=== PATIENT | female | born 1955 | race Caucasian/White ===

== ENCOUNTER → 2017-12-31 14:31 | Outpatient (CLI) | payer BC, SELFPAY ==
[2017-12-31 16:16] LABS: Absolute Lymphocyte Count 1.35 X10^3/ul (0.83-4.51); Absolute Neutrophil Count 3.2 X10^3/uL (2.0-7.7); Basophil# 0.03 X10^3/uL; Basophil% 0.6 % (0-1); Eosinophil# 0.13 X10^3/uL; Eosinophils% 2.6 % (0-5); Hematocrit 39.1 % (37-47); Hemoglobin 12.7 g/dl (12.0-15.0); Lymphocyte # 1.35 X10^3/ul (4.0); Lymphocyte % 26.6 % (19-41); Mean Corp Hgb Conc 32.5 g/gl (32-36); Mean Corpuscular Hgb 27.9 pg (27.0-32.0); Mean Corpuscular Volume 85.7 fL (81-99); Monocyte# 0.38 X10^3/uL; Monocyte% 7.5 % (0-10); Neutrophil # 3.17 X10^3/uL (2.7-7.7); Neutrophil % 62.5 % (47-70); Platelet Count 224 K/mm3 (150-450); RBC Distribution Width CV 13.6 % (11.6-14.6); RBC Distribution Width SD 41.9 fl (35.1-43.9); Red Blood Count 4.56 M/mm3 (4.2-5.4); White Blood Count 5.1 K/mm3 (4.4-11.0)
[2017-12-31 16:21] LABS: POSITIVE COUNT NO; POSITIVE DIFFERENTIAL NO; POSITIVE MORPHOLOGY NO
[2017-12-31 17:16] LABS: BUN 8 mg/dL (7-18); BUN/Creat Ratio 12.7 RATIO (10-20); Creatinine, Serum 0.63 mg/dL (0.55-1.02); EST Glomerular Filtration Rate 102 mL/min (>60); Est Glom Filt Rate - Afr Amer 123 mL/min (>60); Glucose 88 mg/dL (74-106); Protein, Total 7.5 g/dL (6.4-8.2)
[2017-12-31 17:17] LABS: ALB/GLOB Ratio 1.1 RATIO (0.9-2.4); AST(SGOT) 23 U/L (15-37); Alanine Aminotransfer ALT/SGPT 23 U/L (13-56); Alkaline Phosphatase 58 U/L (45-117); Anion Gap 11 (5-15); Calcium,Total 9.2 mg/dL (8.5-10.1); Chloride 105 mmol/L (98-107); Globulin 3.5 g/dL (2.2-4.2); Potassium 4.1 mmol/L (3.5-5.1); Sodium Level 143 mmol/L (136-145); Thyroid Stim Hormone (TSH) 1.55 uIU/mL (0.358-3.74)
[2018-01-01 09:19] LABS: Vitamin D,25 Hydroxy 23.9 ng/mL (29.95-100.01)
[2018-01-02 08:53] LABS: Hep C Antibodies 0.1 s/co ratio (0.0-0.9)
== END ==
PROVIDERS: Visit Provider Family Medicine Geriatric Medicine
DX: E55.9 Vitamin D deficiency, unspecified (principal); I10 Essential (primary) hypertension; Z13.89 Encounter for screening for other disorder
CPT/HCPCS: 36415; 80053; 82306; 84443; 85025; 86803

== ENCOUNTER → 2021-09-05 | Outpatient (CLI) | payer OTHER, SELFPAY | END | disposition home or self-care (01) | LOC: LABSPEC 17:02 | PROVIDERS: Visit Provider Family Medicine Geriatric Medicine | DX: N39.0 Urinary tract infection, site not specified (principal) | CPT/HCPCS: 87086; 87088 ==

== ENCOUNTER 2021-09-08 15:55 | Emergency (ER) | payer OTHER, SELFPAY ==
[2021-09-08 15:57] VITALS: BP 134/71; PULSE 91; RESP 17; TEMP 35.8; O2SAT 99; BMI 25.7
--- NOTE | 2021-09-08 16:24 | CT_ITS ---
STUDY: CT ABDOMEN AND PELVIS WITHOUT CONTRAST REASON FOR EXAM: Female, 66 years old. Kidney Stone L flank pain RADIATION DOSAGE (If Supplied By Facility): CTDIvol = ( 6.67 ) mGy, DLP = ( 338.02 ) mGycm TECHNIQUE: Transaxial images were obtained from the dome of the diaphragm to the symphysis pubis without oral contrast, and without intravenous contrast. Sagittal and coronal images were reconstructed. Individualized dose optimization techniques were used for this CT. COMPARISON: None. FINDINGS: 1.5 cm bilobed nodule in the right lower lobe the lungs and correlation with CT the chest with contrast is recommended. The visualized portions of the heart are within normal limits. Normal liver. Normal gallbladder and extrahepatic biliary system. Normal spleen. Normal pancreas. Normal bilateral adrenal glands. Normal right kidney. 6 mm obstructing stone of the left ureterovesical junction with moderate ureteral dilatation, hydronephrosis, and perinephric edema. Normal visualized stomach. Normal small intestine. Normal colon. The appendix is visualized and appears normal. Normal abdominal aorta. Normal inferior vena cava. Normal retroperitoneum. Normal urinary bladder. Normal abdominal wall. Normal osseous structures. CT/Abdomen/Pelvis without Cont IMPRESSION: 6 mm obstructing stone at the left ureterovesical junction with moderate ureteral dilatation, hydronephrosis, perinephric edema. Electronically Signed: Sergio Espana MD at 17:17 EDT ,
--- NOTE | 2021-09-08 16:25 | EDS_ITS ---
HPI HPI - GI History of Present Illness Chief Complaint: Flank Pain Informant: patient Abdominal Pain/Flank Pain Onset: Hours (4) Context: Sudden Onset Timing: Continuous and Waxes and wanes Quality: Aching Location: Left Flank (in back coming around to the left side not the groin or anywhere else) Current Severity: Severe Maximum Severity: Severe Worsened by: Nothing Relieved by: Nothing Nausea/Vomiting/Emesis GI Symptom: Positive for Nausea and Vomiting Onset: Today Diarrhea/Melena/Hematochezia GI Symptom: Negative for Diarrhea, Melena and Hematochezia Associated Symptoms Associated Symptoms: Negative for Dysuria, Frequency and Hematuria Narrative Narrative: Patient states she feels like she is having another kidney stone. She has had several in the past and passed them all, she has never had surgery for stone. This is on the left side. Nausea and vomiting associated with this after the pain started. No problems urinating, was feeling fine prior to the onset of pain 4 or so hours ago all of a sudden. PFSH [facility] Medical History (Updated 09/08/21 @ 17:[address] Jono Rodriguez MD) Kidney stones Home Medications ondansetron 8 mg PO Q8H PRN PRN #20 tab 09/08/21 [Rx Last Taken Unknown] oxycodone-acetaminophen 1 tab PO Q4H PRN 3 Days #18 tablet 09/08/21 [Rx Last Taken Unknown] tamsulosin [Flomax] 0.4 mg PO DAILY #7 cap 09/08/21 [Rx Last Taken Unknown] Allergy/AdvReac Type Severity Reaction Status Date / Time propoxyphene [From Darvon] Allergy Other Verified 09/08/21 16:01 Sulfa (Sulfonamide Allergy Other Verified 09/08/21 16:01 Antibiotics) Tetanus Vaccines and Toxoid Allergy Rash Verified 09/08/21 16:01 ciprofloxacin [From Cipro] AdvReac Other Verified 09/08/21 16:01 Surgical History (Updated 09/08/21 @ 16:[address] Jono Rodriguez MD) H/O: hysterectomy Social History Smoking Status: Never smoker ROS ROS ED Constitutional Constitutional ED: Denies chills or fever(s) Eyes Eyes: Denies change in vision or diplopia ENT ENT ED: Denies rhinorrhea or sore throat Cardiovascular Cardiovascular: Denies chest pain or palpitations Respiratory/Chest Respiratory/Chest: Denies cough or dyspnea Gastrointestinal Gastrointestinal: Reports as per HPI, abdominal pain, nausea and vomiting; Denies diarrhea Genitourinary Genitourinary ED: Reports flank pain; Denies dysuria or hematuria Musculoskeletal Musculoskeletal: Reports back pain; Denies neck pain Integumentary Denies abscess or rash Neurologic Neurologic: Denies headache(s), paresthesias or weakness Psychiatric Psychiatric: Denies anxiety or suicidal thoughts EXAM Physical Exam Const Vital Signs: 09/08/21 15:57 09/08/21 16:04 09/08/21 17:25 Temperature 96.4 F L 97.7 F L Temperature Source Temporal Temporal Pulse Rate 91 72 Respiratory Rate 17 16 Respiratory Pattern Normal Blood Pressure 134/71 H 132/63 H Blood Pressure Mean 92 86 Pulse Ox 99 96 Oxygen Delivery Method Room Air Room Air Positive well nourished and well developed Constitutional Narrative: In acute painful distress, intermittently moaning and screaming, in between normal conversation General Appearance ED: well developed HEENT Reports moist mucous membranes normocephalic and atraumatic Eyes PERRL and EOMs intact bilaterally Neck full ROM and supple Resp normal respiratory effort and clear to auscultation bilaterally Cardio regular rate, regular rhythm and no murmurs GI non-tender and non-distended Auscultation: normoactive bowel sounds Palpation: soft Back/Spine General Back: CVA tenderness left (Overlying erythema here I have been rubbing it and putting Biofreeze on it, just trying to help the pain; no other rash/lesions) and other FROM Extremity normal to inspection General Extremety ED: Negative for edema, pulses abnormal or tenderness General Extremity: Negative for edema or pulses abnormal Neuro oriented x3, CN's II-XII intact bilaterally and no sensory deficits noted Sensorium / Orientation: awake and alert Motor Exam: strength 5/5 throughout Psych Mood & Affect: anxious Skin no rashes or lesions noted and no wounds MDM MDM MDM Narrative Medical decision making narrative: Urine shows positive nitrite but no pyuria, 1+ bacteria seen. This will be sent for culture, unlikely true infection so I do not think she needs any antibiotics right now. She does have a completely obstructed ureter with hydroureter and hydronephrosis due to a 6 mm UVJ stone. It is possible this will pass on its own. She is feeling much better after Toradol, morphine, Zofran. She is in agreement with prescriptions for expectant management, we discussed reasons to return and follow-up with urology. Lab Data Attestation: I reviewed the patient's lab results. Labs: Laboratory Results - last 24 hr 09/08/21 16:10 Urine Color Yellow Urine Clarity Clear Urine pH 7.0 Ur Specific [place] 1.010 Urine Protein 15 H Urine Glucose (UA) Normal Urine Ketones 50 H Urine Occult Blood 10 H Urine Nitrite Positive H Urine Bilirubin Negative Urine Urobilinogen Normal Ur Leukocyte Esterase Negative Urine RBC 0 SEEN Urine WBC 0 SEEN Ur Squamous Epith Cells 0 SEEN Urine Bacteria 1+ Urine Mucus 0 SEEN Radiography Diagnostic Testing: Clinical Impression(s) from Imaging Studies Abdomen/Pelvis CT 09/08/21 16:24 IMPRESSION: 6 mm obstructing stone at the left ureterovesical junction with moderate ureteral dilatation, hydronephrosis, perinephric edema. Electronically Signed: Sergio Espana MD at 17:17 EDT , Discharge Plan Triage Chief Complaint: Flank Pain ED Provider: Jono Rodriguez Dx/Rx/DC Orders Clinical Impression: Ureterolithiasis, Renal colic on left side Instructions: ED Kidney Stone w/ Colic Prescriptions: New oxycodone-acetaminophen [oxycodone-acetaminophen] 1 TABLET tablet 1 tab PO Q4H PRN (Reason: Pain) 3 Days Qty: 18 RF: 0 ondansetron [ondansetron] 4 MG tablet 8 mg PO Q8H PRN PRN (Reason: Nausea) Qty: 20 RF: 0 tamsulosin [Flomax] 0.4 mg capsule 0.4 mg PO DAILY Qty: 7 RF: 0 Primary Care Provider: Brandyn Dodson Chi Referrals: Dionne Mccracken MD [STAFF PHYSICIAN] - 1 Week if not improving (Or ER if medications are not keeping your symptoms controlled enough) Brandyn Dodosn Chi, MD [Primary Care Provider] - Disposition Disposition: Home, Self Care
[2021-09-08] MEDS: Morphine 4 MG/ML Syringe IV (16:32)
[2021-09-08] MEDS: Ketorolac 15 MG/ML Vial IV (16:32)
[2021-09-08] MEDS: Ondansetron 4 MG/2 ML Vial IV (16:32)
[2021-09-08 16:52] LABS: Color, Urine Yellow (Yellow); Glucose, Dipstick Normal (Normal); Ketone-Dipstick 50 mg/dl (Negative); Leukocyte Esterase-Dipstick Negative /ul (Negative); Mucous, Urine 0 SEEN /hpf (<or=2+); Nitrite-Dipstick Positive (Negative); Occult Blood-Urine 10 /ul (Negative); Protein-Dipstick 15 mg/dl (Negative); Red Blood Cells-Urine 0 SEEN /hpf (0-5); Squamous Epithelial Cells - UA 0 SEEN /hpf (5-10); Urine Bilirubin Dipstick Negative (Negative); Urine Clarity Clear (Clear); Urine Urobilinogen Normal (Normal); White Blood Cells 0 SEEN /hpf (0-5)
[2021-09-08 17:25] VITALS: BP 132/63; PULSE 72; RESP 16; TEMP 36.5; O2SAT 96
[2021-09-08 17:25] LABS: Bacteria 1+ /hpf (None Seen)
== END 2021-09-08 18:50 | disposition home or self-care (01) ==
PROVIDERS: Emergency Provider Emergency Medicine; PCP Family Medicine Geriatric Medicine; Visit Provider Emergency Medicine
DX: N13.2 Hydronephrosis with renal and ureteral calculous obstruction (principal); Z87.442 Personal history of urinary calculi
CPT/HCPCS: 74176; 81001; 87086; 96374; 96375; 99283; J2405

== ENCOUNTER 2021-09-11 04:12 | Observation (INO) | payer OTHER, SELFPAY ==
[2021-09-11] VITALS (13 sets, daily range): BP systolic 98–154; BP diastolic 40–95; PULSE 72–107; RESP 16–18; TEMP 36.2–37; O2SAT 95–100; BMI 26.6; BMI 26.0
[2021-09-11] MEDS: Ondansetron 4 MG/2 ML Vial IV (04:23)
[2021-09-11] MEDS: 0.9% Normal Saline 1,000 ML 999 ML IV (04:23)
[2021-09-11] MEDS: Morphine 4 MG/ML Syringe IV ×2 (04:23→09:15)
[2021-09-11] MEDS: Ketorolac 15 MG/ML Vial IV (04:25)
[2021-09-11 04:31] LABS: Absolute Lymphocyte Count 0.48 X10^3/uL (0.83-4.51); Absolute Neutrophil Count 11.2 X10^3/uL (2.0-7.7); Basophil# 0.02 X10^3/uL; Basophil% 0.2 % (0-1); Hematocrit 39.7 % (37-47); Hemoglobin 12.9 g/dL (12.0-15.0); Lymphocyte # 0.48 X10^3/ul (0.83-4.51); Lymphocyte % 3.9 % (19-41); Mean Corp Hgb Conc 32.5 g/dL (32-36); Mean Corpuscular Hgb 27.9 pg (27.0-32.0); Mean Corpuscular Volume 85.9 fL (81-99); Mean Platelet Vol. 10.9 fl (6.2-12.0); Monocyte# 0.52 X10^3/uL; Monocyte% 4.2 % (0-10); NRBC Flagged by Analyzer 0 % (0-5); Neutrophil # 11.24 X10^3/uL (2.7-7.7); Neutrophil % 91.1 % (47-70); POSITIVE DIFFERENTIAL YES; Platelet Count 215 K/mm3 (150-450); RBC Distribution Width CV 12.8 % (11.6-14.6); Red Blood Count 4.62 M/mm3 (4.2-5.4); White Blood Count 12.3 K/mm3 (4.4-11.0)
[2021-09-11 04:36] LABS: Differential Indicated SCAN CRITERIA MET
--- NOTE | 2021-09-11 04:39 | EX.ED.DYSGE1 ---
HPI History of Present Illness Chief Complaint: Flank Pain Narrative Narrative: Patient is a 66-year-old female who was seen 3 days ago for the same complaint. At that time she had a CT scan obtained which showed a 6 mm stone in the left distal ureter with obstruction. She was feeling better after Toradol morphine and Zofran in the ER and was discharged home with Percocet. She states she was doing well but over the past 6 hours has had return of pain at the Percocet is not helping with. Secondary to this she presents to the hospital for evaluation [facility] Medical History Kidney stones Home Medications ondansetron 8 mg PO Q8H PRN PRN #20 tab 09/08/21 [Rx Last Taken Unknown] oxycodone-acetaminophen 1 tab PO Q4H PRN 3 Days #18 tablet 09/08/21 [Rx Last Taken Unknown] tamsulosin [Flomax] 0.4 mg PO DAILY #7 cap 09/08/21 [Rx Last Taken Unknown] ketorolac 10 mg PO 4X/DAY PRN PRN 5 Days #20 tab 09/11/21 [Rx Last Taken Unknown] Allergy/AdvReac Type Severity Reaction Status Date / Time propoxyphene [From Darvon] Allergy Other Verified 09/11/21 04:19 Sulfa (Sulfonamide Allergy Other Verified 09/11/21 04:19 Antibiotics) Tetanus Vaccines and Toxoid Allergy Rash Verified 09/11/21 04:19 ciprofloxacin [From Cipro] AdvReac Other Verified 09/11/21 04:19 Surgical History (Updated 09/08/21 @ 16:[address] Jono Rodriguez MD) H/O: hysterectomy Social History Smoking Status: Never smoker ROS ROS ED Constitutional Constitutional ED: Denies chills or fever(s) ENT ENT ED: Denies sore throat Cardiovascular Cardiovascular: Denies chest pain Respiratory/Chest Respiratory/Chest: Denies cough or dyspnea Gastrointestinal Gastrointestinal: Reports abdominal pain and nausea; Denies diarrhea or vomiting Genitourinary Genitourinary ED: Denies dysuria Musculoskeletal Musculoskeletal: Reports back pain; Denies myalgias Integumentary Denies rash Neurologic Neurologic: Denies headache(s) Hematologic/Lymphatic Hematologic/Lymphatic: Denies easy bleeding or easy bruising EXAM Physical Exam Const Vital Signs: 09/11/21 04:13 09/11/21 06:30 Temperature 98.2 F Temperature Source Temporal Pulse Rate 101 H Respiratory Rate 17 16 Blood Pressure 154/95 H Blood Pressure Mean 114 Pulse Ox 98 Oxygen Delivery Method Room Air Positive well nourished and well developed General Appearance ED: well developed Eyes PERRL and EOMs intact bilaterally Neck supple Resp normal respiratory effort and clear to auscultation bilaterally Cardio regular rate and regular rhythm Rate: other Other Details: Radial pulses are +2-4 bilaterally are equal and symmetric GI non-distended GI Narrative: Mild pain on palpation of the left-sided abdomen without voluntary guarding or rigidity Auscultation: normoactive bowel sounds Palpation: soft Back/Spine Back/Spine Narrative: Positive left CVA pain Extremity normal to inspection Neuro oriented x3 and CN's II-XII intact bilaterally Sensorium / Orientation: alert Motor Exam: strength 5/5 throughout Psych mental status grossly normal Skin no rashes or lesions noted MDM MDM MDM Narrative Medical decision making narrative: Patient presented to the ER afebrile she was hypertensive but I felt this was related to pain. She has a known 6 mm stone so I felt there was no need for repeat imaging but did elect to check basic labs to rule out urosepsis and acute kidney injury. Blood work showed no elevation to her creatinine and even though her white count was elevated the urine showed no infection. I feel the leukocytosis is most likely stress response from her pain. Patient was given morphine Toradol and Zofran and had resolution of her symptoms. The patient did drive herself to the ER and therefore will need to be watched for 4 hours until she is safe for discharge. At that time if her pain remains controlled I feel she is safe for discharge and can have Toradol added to her Percocet regimen. However if pain returns with significant she may need admitted for intractable pain Lab Data Attestation: I reviewed the patient's lab results. Labs: Laboratory Results - last 24 hr 09/11/21 09/11/21 09/11/21 04:20 04:20 05:30 WBC 12.3 H RBC 4.62 Hgb 12.9 Hct 39.7 MCV 85.9 MCH 27.9 MCHC 32.5 RDW Std Deviation 40.0 RDW Coeff of Terry 12.8 Plt Count 215 MPV 10.9 Immature Gran % (Auto) 0.600 Neut % (Auto) 91.1 H Lymph % (Auto) 3.9 L [place] % (Auto) 4.2 Eos % (Auto) 0.0 Baso % (Auto) 0.2 Absolute Neuts (auto) 11.2 H Absolute Lymphs (auto) 0.48 L Nucleated RBC % 0 Sodium 137 Potassium 4.1 Chloride 102 Carbon Dioxide 30.0 Anion Gap 5 BUN 12 Creatinine 0.82 Estim Creat Clear Calc 57.33 Est GFR (MDRD) Af Amer 91 Est GFR (MDRD) Non-Af 75 BUN/Creatinine Ratio 14.7 Glucose 141 H Calcium 8.9 Urine Color Yellow Urine Clarity Clear Urine pH 7.0 Ur Specific [place] 1.015 Urine Protein Negative Urine Glucose (UA) Normal Urine Ketones Negative Urine Occult Blood 25 H Urine Nitrite Negative Urine Bilirubin Negative Urine Urobilinogen Normal Ur Leukocyte Esterase Negative Urine RBC 0-5 SEEN Urine WBC 0 SEEN Ur Squamous Epith Cells 0 SEEN Urine Bacteria 0 SEEN Urine Mucus 0 SEEN Discharge Plan Triage Chief Complaint: Flank Pain ED Provider: Angelo Matos Dx/Rx/DC Orders Clinical Impression: Renal colic on left side, Ureterolithiasis Instructions: ED Kidney Stone w/ Colic Prescriptions: New ketorolac 10 mg tablet 10 mg PO 4X/DAY PRN PRN (Reason: pain) 5 Days Qty: 20 RF: 0 No Action oxycodone-acetaminophen [oxycodone-acetaminophen] 1 TABLET tablet 1 tab PO Q4H PRN (Reason: Pain) 3 Days Qty: 18 RF: 0 ondansetron [ondansetron] 4 MG tablet 8 mg PO Q8H PRN PRN (Reason: Nausea) Qty: 20 RF: 0 tamsulosin [Flomax] 0.4 mg capsule 0.4 mg PO DAILY Qty: 7 RF: 0 Primary Care Provider: Brandyn Dodson Chi Referrals: Brandyn Dodson Chi, MD [Primary Care Provider] - Activity Restrictions/Additional Instructions: Please continue Percocet as needed for pain control and you may take 2 to time if necessary. Please begin taking the Flomax as this will help you pass the larger stone that you have and you can add Toradol to the pain regimen and take at the same time as the Percocet for improved pain control. If you develop a fever over 100.4 or your pain is not controlled with outpatient therapy please return to the hospital for repeat evaluation
[2021-09-11 04:49] LABS: Anion Gap 5 (5-15); BUN 12 mg/dL (7-18); BUN/Creat Ratio 14.7 RATIO (10-20); Calcium,Total 8.9 mg/dL (8.5-10.1); Chloride 102 mmol/L (98-107); Creatinine, Serum 0.82 mg/dL (0.55-1.02); EST Glomerular Filtration Rate 75 mL/min (>60); Est Glom Filt Rate - Afr Amer 91 mL/min (>60); Estimated Creatinine Clearance 57.33 ml/min; Glucose 141 mg/dL (74-106); Potassium 4.1 mmol/L (3.5-5.1); Sodium Level 137 mmol/L (136-145)
[2021-09-11 05:34] LABS: Bacteria 0 SEEN /hpf (None Seen); Mucous, Urine 0 SEEN /hpf (<or=2+); Squamous Epithelial Cells - UA 0 SEEN /hpf (5-10); White Blood Cells 0 SEEN /hpf (0-5)
[2021-09-11 05:35] LABS: Color, Urine Yellow (Yellow); Glucose, Dipstick Normal (Normal); Ketone-Dipstick Negative (Negative); Leukocyte Esterase-Dipstick Negative /ul (Negative); Nitrite-Dipstick Negative (Negative); Occult Blood-Urine 25 /ul (Negative); Protein-Dipstick Negative (Negative); Specific Gravity, Urine 1.015 (1.002-1.030); Urine Bilirubin Dipstick Negative (Negative); Urine Clarity Clear (Clear); Urine Urobilinogen Normal (Normal)
[2021-09-11 06:02] LABS: Red Blood Cells-Urine 0-5 SEEN /hpf (0-5)
--- NOTE | 2021-09-11 09:02 | NURSING ---
MED SURG OBS KEERTHI LEFT RENAL COLIC, 6 MM UVJ STONE
--- NOTE | 2021-09-11 10:53 | EKG12_ITS ---
Test Reason : PRE-OP Blood Pressure : / mmHG Vent. Rate : 078 BPM Atrial Rate : 078 BPM P-R Int : 140 ms QRS Dur : 084 ms QT Int : 402 ms P-R-T Axes : 059 038 047 degrees QTc Int : 458 ms Normal sinus rhythm Normal ECG No previous ECGs available Confirmed by SARA MARTINEZ, GREGORY ([id number]), mapping editor SASHA VILLAREAL ([id number]) on 09/13/2021 9:46:51 AM Referred By: KEERTHI Confirmed By:BHUMI RUIZ MD
--- NOTE | 2021-09-11 10:53 | HP.PCM_ITS ---
HPI - General General Date of Admission: 09/11/21 HPI Narrative ROMELIA KUMAR, is a 66 F who presents with a large stone in the distal LEFT ureter. plan for stent placement today admitted from ER with pain. PENDING SALE TO [facility] Medical History Kidney stones Home Medications ondansetron 8 mg PO Q8H PRN PRN #20 tab 09/08/21 [Rx Last Taken Unknown] oxycodone-acetaminophen 1 tab PO Q4H PRN 3 Days #18 tablet 09/08/21 [Rx Last Taken 09/11/21 01:00] tamsulosin [Flomax] 0.4 mg PO DAILY #7 cap 09/08/21 [Rx Last Taken 09/11/21 03:00] cephalexin 500 mg PO BID #10 cap 09/11/21 [Rx Last Taken Unknown] ketorolac 10 mg PO 4X/DAY PRN PRN 5 Days #20 tab 09/11/21 [Rx Last Taken Unknown] oxycodone-acetaminophen 1 tab PO Q4H PRN 7 Days #14 tab 09/11/21 [Rx Last Taken Unknown] Allergy/AdvReac Type Severity Reaction Status Date / Time propoxyphene [From Darvon] Allergy Other Verified 09/11/21 04:19 Sulfa (Sulfonamide Allergy Other Verified 09/11/21 04:19 Antibiotics) Tetanus Vaccines and Toxoid Allergy Rash Verified 09/11/21 04:19 ciprofloxacin [From Cipro] AdvReac Other Verified 09/11/21 04:19 Surgical History (Updated 09/08/21 @ 16:[address] Jono Rodriguez MD) H/O: hysterectomy Social History Smoking Status: Never smoker Vital Signs Vital Signs Vital Signs: 09/11/21 04:13 09/11/21 06:30 09/11/21 09:09 Temperature 98.2 F 98 F Temperature Source Temporal Temporal Pulse Rate 101 H 78 Respiratory Rate 17 16 18 Blood Pressure 154/95 H 121/68 H Blood Pressure Mean 114 85 Blood Pressure Source Blood Pressure Position Blood Pressure Location Pulse Ox 98 99 Oxygen Delivery Method Room Air Room Air 09/11/21 09:50 Temperature 98.2 F Temperature Source Oral Pulse Rate 72 Respiratory Rate 18 Blood Pressure 127/53 H Blood Pressure Mean 77 Blood Pressure Source Monitor Blood Pressure Position Semi-Fowlers Blood Pressure Location Left Arm Pulse Ox 100 Oxygen Delivery Method Room Air Weight Weight: 66.678 kg Body Mass Index (BMI) 26.0 Physical Exam Const alert and oriented x3 General Appearance: cooperative HEENT normocephalic, head/scalp atraumatic, EAC's normal and TM's normal bilaterally Eyes PERRL and EOMs intact bilaterally Pupil: sluggish Neck no lymphadenopathy, supple and no JVD General: trachea midline Lymph Lymphatic: no lymphadenopathy noted, lymphedema and lymphadenopathy Resp normal respiratory effort, normal air movement and clear to auscultation bilaterally Cardio regular rate, regular rhythm and peripheral pulses 2+ throughout GI soft to palpation, non-tender and non-distended Extremity normal capillary refill and no clubbing, cyanosis or edema General Extremity: no tenderness to palpation of joints or extremities Skin no rashes or lesions noted General Skin Exam: turgor normal Lesions: no lesions Rashes: no rashes Neuro CN's II-XII intact bilaterally Speech: speech normal Motor Exam: strength 5/5 throughout; Negative for general weakness Psych thought process normal, cooperative and affect normal Appearance: appropriate Results Lab / Micro Data Result Diagrams: 09/11/21 04:20 09/11/21 04:20 Labs: Laboratory Results - last 24 hr 09/11/21 04:20: WBC 12.3 H, RBC 4.62, Hgb 12.9, Hct 39.7, MCV 85.9, MCH 27.9, MCHC 32.5, RDW Std Deviation 40.0, RDW Coeff of Terry 12.8, Plt Count 215, MPV 10.9, Immature Gran % (Auto) 0.600, Neut % (Auto) 91.1 H, Lymph % (Auto) 3.9 L, [place] % (Auto) 4.2, Eos % (Auto) 0.0, Baso % (Auto) 0.2, Absolute Neuts (auto) 11.2 H, Absolute Lymphs (auto) 0.48 L, Nucleated RBC % 0 09/11/21 04:20: Sodium 137, Potassium 4.1, Chloride 102, Carbon Dioxide 30.0, Anion Gap 5, BUN 12, Creatinine 0.82, Estim Creat Clear Calc 57.33, Est GFR (MDRD) Af Amer 91, Est GFR (MDRD) Non-Af 75, BUN/Creatinine Ratio 14.7, Glucose 141 H, Calcium 8.9 09/11/21 05:30: Urine Color Yellow, Urine Clarity Clear, Urine pH 7.0, Ur Specific [place] 1.015, Urine Protein Negative, Urine Glucose (UA) Normal, Urine Ketones Negative, Urine Occult Blood 25 H, Urine Nitrite Negative, Urine Bilirubin Negative, Urine Urobilinogen Normal, Ur Leukocyte Esterase Negative, Urine RBC 0-5 SEEN, Urine WBC 0 SEEN, Ur Squamous Epith Cells 0 SEEN, Urine Bacteria 0 SEEN, Urine Mucus 0 SEEN Assessment & Plan Assessment/Plan (1) Renal colic on left side: PLAN: plan for cysto and left stent placement.
--- NOTE | 2021-09-11 11:00 | PCM.DC ---
Discharge Instructions Diet Discharge Diet: No restrictions Activity Discharge Activity: Return to Normal Activity and May Not Drive (while taking narcotic pain medications.) Dressing / Incision Call your doctor if you observe: Fever of 101 or Higher Follow Up Care Please Follow Up With: Mehul Bell MD When: Call [phone] for an appointment Test Results: Test results from this visit will be discussed in further detail at your follow-up appointment, if applicable. Discharge Plan Admission Admit Date/Time: 09/11/21 09:11 Primary Reason for Your Visit: kidney stone Attending Provider: Mehul Bell Primary Care Provider: Brandyn Dodson Chi Instructions Patient Instructions: ED Kidney Stone w/ Colic Additional Instructions / Restrictions: Please continue Percocet as needed for pain control and you may take 2 to time if necessary. Please begin taking the Flomax as this will help you pass the larger stone that you have and you can add Toradol to the pain regimen and take at the same time as the Percocet for improved pain control. If you develop a fever over 100.4 or your pain is not controlled with outpatient therapy please return to the hospital for repeat evaluation Discharge Orders/Prescriptions Prescriptions: New ketorolac 10 mg tablet 10 mg PO 4X/DAY PRN PRN (Reason: pain) 5 Days Qty: 20 RF: 0 cephalexin 500 mg capsule 500 mg PO BID Qty: 10 RF: 0 oxycodone-acetaminophen 5-325 mg tablet 1 tab PO Q4H PRN (Reason: pain) 7 Days Qty: 14 RF: 0 No Action oxycodone-acetaminophen [oxycodone-acetaminophen] 1 TABLET tablet 1 tab PO Q4H PRN (Reason: Pain) 3 Days Qty: 18 RF: 0 ondansetron [ondansetron] 4 MG tablet 8 mg PO Q8H PRN PRN (Reason: Nausea) Qty: 20 RF: 0 tamsulosin [Flomax] 0.4 mg capsule 0.4 mg PO DAILY Qty: 7 RF: 0 Referrals / Follow Up: Mehul Bell MD [STAFF PHYSICIAN] - Brandyn Dodson Chi, MD [Primary Care Provider] -
[2021-09-11] MEDS: 0.9% Normal Saline 1,000 ML 75 ML IV (13:16)
[2021-09-11] MEDS: Cefazolin 1 GM/50 ML BAG IV (14:15)
--- NOTE | 2021-09-11 14:34 | PCM.OPRPT ---
Report of Operation Date of Procedure: 09/11/21 Pre-Operative Diagnosis: left ureteral calculi Post-Operative Diagnosis: same Surgery/Procedure Performed:: cystoscopy, left retrograde pyelogram and left stent placement. Description of Surgical Findings:: Patient was taken back to the operating room after induction of general anesthesia, the patient was placed in dorsolithotomy position. The urethra and genitals were prepped and draped in usual sterile fashion. Using a 21 Jordanian rigid cystourethroscope the entire length of the urethra was normal then went into the bladder. Identified the trigone the left and right ureteral orifice. I then cannulated the Left orifice and advanced a wire up into the kidney. I then backloaded a 5 Jordanian open ended catheter over the wire and injected contrast to delineate the anatomy. After the retrograde was performed I then used fluoroscopic images and guidance to advanced a wire up into the kidney and over the 0.038 glidewire I advanced a 6 Jordanian by 26 cm double pigtail stent. I then pulled the 0.038 Glidewire off and the stent coiled in the kidney bladder good position. The bladder was then drained. We confirmed the position of the stent by fluoroscopy. Patient anesthetic was reversed and was taken back to the PACU in good condition. Surgeon: Gayla Type of Anesthesia: General Drains: stent Admit VTE Documentation VTE Present on Admission: No VTE Mechan Device Prophylaxis: SCD's VTE Pharm Prophylaxis ordered?: No
== END 2021-09-11 14:55 | disposition home or self-care (01) ==
LOC: ED 09:13 → PCU 10:25
PROVIDERS: Admitting Provider Urology; Emergency Provider Emergency Medicine; PCP Family Medicine Geriatric Medicine; Visit Provider Urology
PROC: (CPT 52332; principal; 2021-09-11 15:30)
DX: N20.1 Calculus of ureter (principal); N13.9 Obstructive and reflux uropathy, unspecified; Z79.899 Other long term (current) drug therapy
CPT/HCPCS: 52332; 00910; 76000; 80048; 81001; 85025; 87811; 93005; 96361; 96374; 96375; 96376; 99218; 99283; J7030; A4216; C1769; C2617; G0378; J2405

== ENCOUNTER → 2022-09-09 | Outpatient (CLI) | payer MEDICARE, OTHER, SELFPAY ==
[2022-09-09 17:37] LABS: Absolute Lymphocyte Count 1.49 X10^3/uL (0.83-4.51); Absolute Neutrophil Count 3.9 X10^3/uL (2.0-7.7); Basophil# 0.05 X10^3/uL; Basophil% 0.8 % (0-1); Eosinophil# 0.18 X10^3/uL; Eosinophils% 2.9 % (0-5); Hematocrit 41.5 % (37-47); Lymphocyte # 1.49 X10^3/ul (0.83-4.51); Lymphocyte % 24.3 % (19-41); Mean Corp Hgb Conc 31.3 g/dL (32-36); Mean Corpuscular Hgb 27.5 pg (27.0-32.0); Mean Corpuscular Volume 87.7 fL (81-99); Mean Platelet Vol. 11.4 fl (6.2-12.0); Monocyte# 0.49 X10^3/uL; NRBC Flagged by Analyzer 0 % (0-5); Neutrophil % 63.7 % (47-70); Platelet Count 258 K/mm3 (150-450); RBC Distribution Width CV 13.3 % (11.6-14.6); RBC Distribution Width SD 42.9 fl (35.1-43.9); Red Blood Count 4.73 M/mm3 (4.2-5.4); White Blood Count 6.1 K/mm3 (4.4-11.0)
[2022-09-09 18:31] LABS: Vitamin D,25 Hydroxy 44.4 ng/mL
[2022-09-09 19:03] LABS: ALB/GLOB Ratio 1.1 RATIO (0.9-2.4); AST(SGOT) 21 U/L (15-37); Alanine Aminotransfer ALT/SGPT 17 U/L (13-56); Albumin, Serum 3.8 g/dL (3.2-5.0); Alkaline Phosphatase 56 U/L (45-117); Anion Gap 6 (5-15); BUN 14 mg/dL (7-18); BUN/Creat Ratio 12.7 RATIO (10-20); Calcium,Total 9.4 mg/dL (8.5-10.1); Chloride 108 mmol/L (98-107); EST Glomerular Filtration Rate 53 mL/min (>60); Est Glom Filt Rate - Afr Amer 64 mL/min (>60); Globulin 3.6 g/dL (2.2-4.2); Glucose 86 mg/dL (74-106); Potassium 4.1 mmol/L (3.5-5.1); Protein, Total 7.4 g/dL (6.4-8.2); Sodium Level 142 mmol/L (136-145); Thyroid Stim Hormone (TSH) 2.22 uIU/mL (0.358-3.74)
== END | disposition home or self-care (01) ==
LOC: POLAB3 15:11
PROVIDERS: PCP Family Medicine Geriatric Medicine; Visit Provider Family Medicine Geriatric Medicine
DX: E55.9 Vitamin D deficiency, unspecified (principal); I10 Essential (primary) hypertension
CPT/HCPCS: 36415; 80053; 82306; 84443; 85025

== ENCOUNTER → 2022-10-01 | Outpatient (CLI) | payer MEDICARE, OTHER, SELFPAY ==
--- NOTE | 2022-10-01 11:37 | BD_ITS ---
STUDY: DUAL ENERGY X-RAY ABSORPTIOMETRY / DXA REASON FOR EXAM: Female, 67 years old. 627.8Menopausal postmenopausal BONE DENSITY REASON FOR EXAM TECHNIQUE: Bone Mineral Density (BMD) measurements of lumbar spine and bilateral hips were obtained. COMPARISON: None. FINDINGS: Lumbar Spine (L1-L4): g/cm2 (0.975) / T-score (-0.7) / Z-score (1.2) Findings are suggestive of normal bone density with a low fracture risk. Left Femur Total: g/cm2 (0.829) / T-score (-0.9) / Z-score (0.3) Left Femoral Neck: g/cm2 (0.600) / T-score (-2.2) / Z-score (-0.7) Right Femur Total: g/cm2 (0.812) / T-score (-1.1) / Z-score (0.2) Right Femoral Neck: g/cm2 (0.616) / T-score (-2.1) / Z-score (-0.6) BD/Dexa Bone Density Study IMPRESSION: The patient is considered osteopenic as outlined below according to World Andrei Organization (WHO) criteria with a high fracture risk. Reference Information: The T-score is the number of standard deviations above or below the standard which is normal for young adults at their peak bone mineral density. The World Health Organization (WHO) interprets the T-scores as follows: Above -1 Normal bone density Between -1 and -2.5 Osteopenia Equal to / or below -2.5 Osteoporosis As a practical clinical guideline, osteopenia may be graded as follows: Mild -1 through -1.5 Moderate -1.6 through -2.0 Severe -2.1 through -2.4 The Z-score is the number of standard deviations above or below age-matched controls. A Z-score of less than -1.5 would be considered abnormal. References: 1. NIH Osteoporosis and Related Bone Diseases www osteo.org 2. International Society for Clinical Densitometry www iscd.org 3. National Osteoporosis Foundation www nof.org Electronically Signed: Teo Barker MD at 15:50 EDT ,
== END | disposition home or self-care (01) ==
LOC: OPBD 11:31
PROVIDERS: PCP Family Medicine Geriatric Medicine; Referring Provider Family Medicine Geriatric Medicine; Visit Provider Family Medicine Geriatric Medicine
DX: Z78.0 Asymptomatic menopausal state (principal)
CPT/HCPCS: 77080